=== PATIENT | male | born 1995 | race Two or more races ===

== ENCOUNTER 2017-09-09 14:18 | Emergency (ER) | payer SELFPAY ==
--- NOTE | 2017-09-09 15:57 | ED ---
Lower Extremity - HPI Summary HPI Summary: Patient here with right ankle injury last night while playing basketball. Reports he went up for rebound and on the way down he inverted his ankle and heard a pop. He was able to bear weight but this morning his ankles quite swollen and he is not able to bear weight without pain. He has some tingling around the lateral aspect of the malleolus but denies weakness or numbness. He has been resting, icing and elevating reports it is feeling a little bit better since here however he continues to have pain with weightbearing. He admits he is sprain both of his ankles multiple times throughout his life. He does not wear ankle braces nor has he had any surgeries or physical therapy for any of these injuries. - History of Current Complaint Chief Complaint: EDExtremityLower Stated Complaint: RT ANKLE INJURY Time Seen by Provider: 09/09/17 14:39 Hx Obtained From: Patient Pain Intensity: 3 - Allergies/Home Medications Allergies/Adverse Reactions: Allergies Allergy/AdvReac Type Severity Reaction Status Date / Time No Known Allergies Allergy Verified 09/09/17 14:27 Home Medications: Home Medications NK [No Home Medications Reported] 09/09/17 [History Confirmed 09/09/17] PMH/Surg Hx/FS Hx/Imm Hx Previously Healthy: Yes Endocrine/Hematology History: Denies: Autoimmune Disease - Immunization History Immunizations Up to Date: Yes Infectious Disease History: No Infectious Disease History: Denies: Traveled Outside the [place] in Last 30 Days - Family History Known Family History: Positive: None - Social History Occupation: Student Lives: Dormitory/Roommates Alcohol Use: None Hx Substance Use: No Substance Use Type: Reports: None Hx Tobacco Use: No Smoking Status (MU): Never Smoked Tobacco Review of Systems Constitutional: Negative Positive: no symptoms reported Positive: Arthralgia, Myalgia, Decreased ROM, Edema Positive: Bruising - lateral ankle Positive: Paresthesia. Negative: Weakness, Numbness Psychological: Normal All Other Systems Reviewed And Are Negative: Yes Physical Exam Triage Information Reviewed: Yes Vital Signs On Initial Exam: Initial Vitals Temp Pulse Resp BP Pulse Ox 98.5 F 75 18 132/72 98 09/09/17 14:23 09/09/17 14:23 09/09/17 14:23 09/09/17 14:23 09/09/17 14:23 Vital Signs Reviewed: Yes Appearance: Positive: Well-Appearing, No Pain Distress, Well-Nourished Skin: Positive: Warm, Skin Color Reflects Adequate Perfusion, Dry - edema w/ ecchymosis and erythema over Rt lateral malleolus - TTP here - no skin breakdown Head/Face: Positive: Normal Head/Face Inspection Eyes: Positive: EOMI ENT: Positive: Hearing grossly normal Respiratory/Lung Sounds: Positive: Breath Sounds Present Cardiovascular: Positive: Pulses are Symmetrical in both Upper and Lower Extremities Musculoskeletal: Positive: Strength/ROM Intact - toes, knee - can move ankle but has some pain w/ the flexions, Pain @ - Rt lateral malleolus w/ edema - TTP ; also TTP over anterior talofibular ligament; 5th MT is NTTP as are all MT's on this foot - no laxity or gross deformity other than soft tissue swelling Neurological: Positive: Normal, Sensory/Motor Intact, Alert, Oriented to Person Place, Time, CN Intact II-III Diagnostics - Vital Signs Vital Signs Temp Pulse Resp BP Pulse Ox 09/09/17 14:23 98.5 F 75 18 132/72 98 - Laboratory Lab Statement: Any lab studies that have been ordered have been reviewed, and results considered in the medical decision making process. Discharge - Discharge Plan Referrals: [facility] - Vladimir ADAMS [Primary Care Provider] -
--- NOTE | 2017-09-09 16:11 | RAD ---
INDICATION: Right ankle injury. TECHNIQUE: 3 views of the right ankle were obtained. FINDINGS: Soft tissue swelling is noted along the anterolateral aspect of the ankle. No fracture is seen. Joint spaces appear maintained. IMPRESSION: SOFT TISSUE SWELLING, NO FRACTURE IS SEEN.
[2017-09-09 17:21] VITALS: BP 136/82
== END 2017-09-09 17:20 | disposition home or self-care (01) ==
LOC: ED 14:18
DX: S99.911A Unspecified injury of right ankle, initial encounter (principal); S90.00XA Contusion of unspecified ankle, initial encounter; X50.9XXA Other and unspecified overexertion or strenuous movements or postures, initial encounter; Y93.67 Activity, basketball; Y92.9 Unspecified place or not applicable
CPT/HCPCS: 99282